=== PATIENT | male | born 1990 | race Caucasian/White ===

== ENCOUNTER 2019-09-06 23:11 | Inpatient (IN) ==
[2019-09-07 00:53] LABS: Urine Appearance Cloudy; Urine Bilirubin Negative (Negative); Urine Blood 1+ (Negative); Urine Color Yellow; Urine Glucose Negative (Negative); Urine Ketones Negative (Negative); Urine Nitrite Negative (Negative); Urine Protein 3+(>=500 mg/dL) (Negative); Urine Specific Gravity 1.015 (1.010-1.030); Urine Urobilinogen Negative (Negative)
[2019-09-07 01:01] LABS: Urine Bacteria 1+ (Absent); Urine Granular Casts Present (Absent); Urine Red Blood Cell 3+(>10/hpf) (Absent); Urine White Blood Cell 1+(6-10/hpf) (Absent)
[2019-09-07 01:08] LABS: ALT 79 U/L (7-52); AST 54 U/L (13-39); Albumin 4.8 g/dL (3.2-5.2); Albumin/Globulin Ratio 1.7 (1-3); Alkaline Phosphatase 71 U/L (34-104); Anion Gap 12 mmol/L (2-11); BUN/Creatinine Ratio 7.7 (8-20); Blood Urea Nitrogen 11 mg/dL (6-24); CO2 Carbon Dioxide 28 mmol/L (22-32); Calcium 10.1 mg/dL (8.6-10.3); Chloride 101 mmol/L (101-111); EGFR African American 72.4 (>60); EGFR Non-African American 59.8 (>60); Globulin 2.9 g/dL (2-4); Glucose 127 mg/dL (70-100); Potassium 4.2 mmol/L (3.5-5.0); Sodium 141 mmol/L (135-145); Total Protein 7.7 g/dL (6.4-8.9)
[2019-09-07 01:12] LABS: Red Blood Count 5.47 10^6 /uL (4.18-5.48); White Blood Count 8.4 10^3/uL (3.5-10.8)
[2019-09-07 01:13] LABS: ABS Basophils 0.1 10^3/ul (0-0.2); ABS Lymphocytes 1.5 10^3/ul (1.0-4.8); ABS Monocytes 0.4 10^3/ul (0-0.8); Eosinophil % 0.4 %; Lymphocyte % 17.8 %; Mean Corpuscular HGB Conc 35 g/dL (31-36); Mean Corpuscular Hemoglobin 31 pg (27-31); Mean Corpuscular Volume 89 fL (80-94); Mean Platelet Volume 8.7 fL (7.4-10.4); Nucleated Red Blood Cells % 0.1; Platelet Count 205 10^3/uL (150-450); Red Cell Distribution Width 15 % (10-15); Urine Benzodiazepine Screen None Detected (None Detect); Urine Opiates Screen None Detected (None Detect)
[2019-09-07 01:15] LABS: Hematocrit 48 % (42-52)
[2019-09-07 01:34] LABS: Acetaminophen < 15 mcg/mL; Alcohol, S 303 mg/dL (<10); Salicylate < 2.50 mg/dL (<30)
[2019-09-07 01:50] LABS: TSH (Thyroid Stimulating Horm) 2.05 mcIU/mL (0.34-5.60)
[2019-09-07] MEDS ORDERED: Al Hydrox/Mg Hydrox/Simet LIQ 30 ML UDC PO PRN (10:29)
[2019-09-07] MEDS: Multivitamins/Minerals TAB PO SCH (15:04)
[2019-09-08] MEDS: Multivitamins/Minerals TAB PO SCH (08:53)
[2019-09-08] MEDS: Nicotine GUM 4MG FRUIT FLAVOR PO PRN ×2 (09:13→11:46)
[2019-09-08 09:21] VITALS: BP 148/92
== END 2019-09-08 17:30 | disposition home or self-care (01) | DRG 754 ==
LOC: ED 23:11 → BSU 09-07 10:29
PROVIDERS: ADMIT Psychiatry & Neurology Psychiatry; ATTEND Psychiatry & Neurology Psychiatry

== ENCOUNTER 2023-10-06 15:19 | Inpatient (IN) ==
[2023-10-06] MEDS: Droperidol 5 MG/2 ML 2 ML VIAL IM ONE (16:38)
[2023-10-06 16:50] LABS: Urine Appearance Clear; Urine Bilirubin Negative (Negative); Urine Blood 1+ (Negative); Urine Color Colorless; Urine Glucose Negative (Negative); Urine Ketones Negative (Negative); Urine Nitrite Negative (Negative); Urine Protein 1+ (>=30 mg/dL) (Negative); Urine Specific Gravity 1.003 (1.002-1.030); Urine Urobilinogen Negative (Negative); Urine pH 6.5 (5.0-8.0)
[2023-10-06 17:06] LABS: Urine Benzodiazepine Screen Presumptive Positive (None Detect); Urine Cannabinoids Screen None Detected (None Detect); Urine Opiates Screen None Detected (None Detect)
[2023-10-06 17:35] LABS: Urine Bacteria Absent /HPF (Absent); Urine Red Blood Cell 1+(3-5/hpf) /HPF (0-Trace); Urine White Blood Cell Trace(0-5/hpf) /HPF (0-Trace)
[2023-10-06 17:57] LABS: ABS Basophils 0.1 10^3/uL (0.0-0.1); ABS Eosinophils 0.1 10^3/uL (0.0-0.5); ABS Lymphocytes 1.9 10^3/uL (1.0-4.8); ABS Monocytes 0.2 10^3/uL (0.0-1.1); ABS Neutrophils 2.9 10^3/uL (1.5-7.6); ABS Nucleated RBC 0.01 10^3/ul; Eosinophil % 1.3 %; Hemoglobin 15.3 g/dL (13.2-16.3); Lymphocyte % 36.1 %; Mean Corpuscular Volume 91.3 fL (80-97); Mean Platelet Volume 8.2 fL (7.5-11.2); Nucleated Red Blood Cells % 0.1 %/100WBC (0.0-0.8); Platelet Count 166 10^3/uL (150-450); Red Blood Count 4.93 10^6/uL (4.06-5.63); Red Cell Distribution Width 14.8 % (12-17); White Blood Count 5.1 10^3/uL (3.6-10.2)
[2023-10-06 18:32] LABS: ALT 30 U/L (7-52); AST 39 U/L (13-39); Acetaminophen < 15 mcg/mL; Albumin 4.9 g/dL (3.2-5.2); Albumin/Globulin Ratio 2.5 (1-3); Alcohol, S 263 mg/dL (<13); Alkaline Phosphatase 73 U/L (35-149); Anion Gap 12 mmol/L (2-16); Blood Urea Nitrogen 8 mg/dL (6-24); CO2 Carbon Dioxide 29 mmol/L (22-32); Calcium 9.4 mg/dL (8.6-10.3); Chloride 102 mmol/L (101-111); Creatinine, Serum 0.92 mg/dL (0.67-1.17); Glucose 82 mg/dL (70-100); Potassium 3.9 mmol/L (3.5-5.0); Salicylate < 2.50 mg/dL (<30); Sodium 143 mmol/L (135-145); Total Bilirubin 0.6 mg/dL (0.2-1.0); Total Protein 6.9 g/dL (6.4-8.9); eGFR CKD-EPI 114.1 (>60)
[2023-10-06 18:44] LABS: TSH Ultra Thyroid Stim Horm 1.52 mcIU/mL (0.34-5.60)
[2023-10-07 06:37] LABS: ABS Basophils 0.1 10^3/uL (0.0-0.1); ABS Eosinophils 0.1 10^3/uL (0.0-0.5); ABS Lymphocytes 1.8 10^3/uL (1.0-4.8); ABS Monocytes 0.4 10^3/uL (0.0-1.1); ABS Neutrophils 5.7 10^3/uL (1.5-7.6); ABS Nucleated RBC 0.02 10^3/ul; Eosinophil % 1.3 %; Hematocrit 43.5 % (38-53); Lymphocyte % 22.3 %; Mean Corpuscular Hemoglobin 31.7 pg (27-33); Mean Corpuscular Hgb Conc 34.5 g/dL (31-36); Mean Corpuscular Volume 91.8 fL (80-97); Mean Platelet Volume 8.3 fL (7.5-11.2); Nucleated Red Blood Cells % 0.2 %/100WBC (0.0-0.8); Platelet Count 136 10^3/uL (150-450); Red Blood Count 4.74 10^6/uL (4.06-5.63); Red Cell Distribution Width 14.7 % (12-17)
[2023-10-07 07:48] LABS: Calcium 9.1 mg/dL (8.6-10.3); Magnesium 1.5 mg/dL (1.9-2.7); Potassium 4.1 mmol/L (3.5-5.0); eGFR CKD-EPI 103.2 (>60)
[2023-10-07] MEDS: Magnesium Sulf 4 GM/100 ML IV 4,000 MG/100 ML BAG IVPB ONE (08:38)
[2023-10-08 13:49] VITALS: BP 127/96
[2023-10-08] MEDS: Nicotine GUM 4MG FRUIT FLAVOR PO PRN (14:22)
[2023-10-08] MEDS ORDERED: Al Hydrox/Mg Hydrox/Simet LIQ 30 ML UDC PO PRN (17:55)
[2023-10-09] MEDS ORDERED: Nicotine PATCH 14 MG/24 HR PATCH TRANSDERM SCH (09:00)
[2023-10-09] MEDS ORDERED: Vitamin THERAPEUTIC TAB PO SCH (09:00)
== END 2023-10-08 15:00 | DRG 812 ==
LOC: MEDTELE 15:19 → ED 15:19 → EDHOLD 15:19 → OBSVTOIN 20:54 → INTOOBSV 20:54 → SUATTDRO 20:54 → MEDTELE 10-07 13:53 → BSU 10-08 15:51
PROVIDERS: ADMIT Internal Medicine; ATTEND Internal Medicine

== ENCOUNTER 2023-10-08 19:42 | Inpatient (IN) ==
[2023-10-08] MEDS ORDERED: Al Hydrox/Mg Hydrox/Simet LIQ 30 ML UDC PO PRN (21:08)
[2023-10-08] MEDS: Nicotine GUM 4MG FRUIT FLAVOR PO PRN (21:49)
[2023-10-08] MEDS ORDERED: LORazepam PO 0-6 for WAM protocol PO SCH (22:00)
[2023-10-09] MEDS: Vitamin THERAPEUTIC TAB PO SCH (07:58)
[2023-10-09] MEDS: Nicotine PATCH 14 MG/24 HR PATCH TRANSDERM SCH (07:59)
[2023-10-09] MEDS: Nicotine Lozenge mini 4 MG LOZNG.MINI MT PRN (14:59)
[2023-10-10 08:54] VITALS: BP 154/100
== END 2023-10-10 14:09 | disposition short-term general hospital (02) | DRG 753 ==
LOC: BSU 19:42
PROVIDERS: ADMIT Psychiatry & Neurology Psychiatry; ATTEND Student in an Organized Health Care Education/Training Program

== ENCOUNTER 2023-10-10 14:10 | Observation (INO) ==
[2023-10-10] MEDS ORDERED: Nicotine GUM 4MG FRUIT FLAVOR PO PRN (15:07)
[2023-10-10 15:10] LABS: ABS Lymphocytes 0.6 10^3/uL (1.0-4.8); ABS Monocytes 0.3 10^3/uL (0.0-1.1); Eosinophil % 0.6 %; Hematocrit 40.5 % (38-53); Hemoglobin 13.6 g/dL (13.2-16.3); Lymphocyte % 10.3 %; Mean Corpuscular Hemoglobin 30.6 pg (27-33); Mean Corpuscular Hgb Conc 33.5 g/dL (31-36); Mean Corpuscular Volume 91.3 fL (80-97); Mean Platelet Volume 8.9 fL (7.5-11.2); Platelet Count 112 10^3/uL (150-450); Red Blood Count 4.43 10^6/uL (4.06-5.63); Red Cell Distribution Width 14.8 % (12-17)
[2023-10-10 16:01] LABS: Albumin 4.7 g/dL (3.2-5.2); Albumin/Globulin Ratio 2.4 (1-3); C Reactive Protein 1.33 mg/L (<8.01); Calcium 9.6 mg/dL (8.6-10.3); Creatinine, Serum 1.06 mg/dL (0.67-1.17); Potassium 4.1 mmol/L (3.5-5.0); Total Bilirubin 0.7 mg/dL (0.2-1.0); Total Protein 6.7 g/dL (6.4-8.9); eGFR CKD-EPI 96.2 (>60)
[2023-10-10 16:14] LABS: TSH Ultra Thyroid Stim Horm 1.44 mcIU/mL (0.34-5.60)
[2023-10-11 08:20] LABS: Urine Appearance No Cx Clear (Clear); Urine Bilirubin No Culture Negative (Negative); Urine Blood No Culture 1+ (Negative); Urine Color No Culture Yellow; Urine Glucose No Culture Negative (Negative); Urine Ketones No Culture Negative (Negative); Urine Leukocytes No Culture Negative Leu/uL (Negative); Urine Nitrite No Culture Negative (Negative); Urine Protein No Culture Negative (Negative); Urine Specific Gravity No Cx 1.016 (1.002-1.030); Urine Urobilinogen No Cx Negative (Negative); Urine pH No Culture 5.5 (5.0-8.0)
[2023-10-11 09:10] LABS: Ur Squamous Epithelial No Cx Present /HPF (Absent); Urine Bacteria No Culture Absent /HPF (Absent); Urine Red Blood Cell No Cult Trace(0-2/hpf) /HPF (0-Trace); Urine White Blood Cell No Cult Trace(0-5/hpf) /HPF (0-Trace)
[2023-10-11] MEDS: Nicotine Lozenge mini 2 MG LOZNG.MINI MT PRN (11:24)
[2023-10-12 06:05] LABS: ABS Eosinophils 0.2 10^3/uL (0.0-0.5); ABS Lymphocytes 1.8 10^3/uL (1.0-4.8); ABS Monocytes 0.6 10^3/uL (0.0-1.1); ABS Neutrophils 2.7 10^3/uL (1.5-7.6); Hematocrit 40.1 % (38-53); Hemoglobin 13.8 g/dL (13.2-16.3); Lymphocyte % 34.5 %; Mean Corpuscular Hemoglobin 31.8 pg (27-33); Mean Corpuscular Hgb Conc 34.4 g/dL (31-36); Mean Corpuscular Volume 92.4 fL (80-97); Nucleated Red Blood Cells % 0.1 %/100WBC (0.0-0.8); Platelet Count 103 10^3/uL (150-450); Red Blood Count 4.34 10^6/uL (4.06-5.63); Red Cell Distribution Width 14.7 % (12-17); White Blood Count 5.3 10^3/uL (3.6-10.2)
[2023-10-12 07:02] LABS: Calcium 9.6 mg/dL (8.6-10.3); Creatinine, Serum 1.04 mg/dL (0.67-1.17); Potassium 3.9 mmol/L (3.5-5.0); eGFR CKD-EPI 98.4 (>60)
[2023-10-12 11:17] VITALS: BP 128/82
== END 2023-10-12 12:25 | disposition home or self-care (01) ==
LOC: MEDTELE → SUATTDRO 14:10 → MEDTELE 14:54
PROVIDERS: ADMIT Internal Medicine; ATTEND Internal Medicine